=== PATIENT | male | born 1955 ===

== ENCOUNTER 2024-08-13 09:36 | Emergency (ER) | payer BC ==
[2024-08-13] MEDS: Amiodarone 150 MG/3 ML SDV IV STA (11:13)
[2024-08-13] MEDS: Calcium Chloride 10% 1 GM/10 ML Syringe IVPUSH ONE (11:13)
[2024-08-13] MEDS: EPINEPHrine 1:10,000 1 MG/10 ML Syringe IVPUSH ONE ×4 (11:13→11:14)
== END 2024-08-13 11:32 | disposition expired ==
LOC: MW.ED 09:36
DX: I46.9 Cardiac arrest, cause unspecified (principal); Z75.8 Other problems related to medical facilities and other health care
CPT/HCPCS: 96374; 99285; J0171; J0282; 92950; J3490